=== PATIENT | male | born 1985 | race Caucasian/White ===

== ENCOUNTER 2018-03-02 19:57 | Emergency (ER) | payer OTHER ==
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
[2018-03-02] MEDS ORDERED: CYCLOBENZAPRINE 10MG PREPACK#3 BTL TAKEHOME ONE (20:45)
[2018-03-02 20:52] VITALS: BP 121/69
== END 2018-03-02 21:02 | disposition home or self-care (01) ==
DX: S43.401A Unspecified sprain of right shoulder joint, initial encounter (principal); W16.012A Fall into swimming pool striking water surface causing other injury, initial encounter; Y92.34 Swimming pool (public) as the place of occurrence of the external cause; Y99.8 Other external cause status; Y93.11 Activity, swimming
CPT/HCPCS: A4565